=== PATIENT | male | born 1940 | race African-American/Black ===

== ENCOUNTER 2018-06-27 12:36 | Day surgery (SDC) | payer MEDICARE ==
[~2018-06-27] VITALS: Ht 175.3 cm; Wt 68.0 kg
[~2018-06-27 12:36] MED LIST: ATEN50TA PO; DIPH25CA83 PO; GLYB5TAB7 PO; METF-414 PO; P50 PO; PREG75CA PO; ROSU5TAB PO
[2018-06-27] MEDS ORDERED: ASPI-1159 PO (13:37)
[2018-06-27] MEDS ORDERED: FURO-152 PO (13:37)
[2018-06-27] MEDS ORDERED: POTA20TA12 PO (13:37)
[2018-06-27] MEDS ORDERED: GABA-531 PO (13:37)
[2018-06-27] MEDS ORDERED: COR25 PO (13:37)
[2018-06-27] MEDS ORDERED: SITA100T11 PO (13:37)
[2018-06-27] MEDS ORDERED: SACU1TAB7 PO (13:37)
[2018-06-27] MEDS ORDERED: IODIXANOL 320MG/ML 100 ML BOTTLE IV ONE (13:55)
[2018-06-27] MEDS ORDERED: LIDOCAINE HCL 1% 20ML VIAL (Pyxis) INJ ONE (13:55)
[2018-06-27] MEDS ORDERED: DIPHENHYDRAMINE 50MG/ML VIAL ONE (14:13)
[2018-06-27] MEDS ORDERED: HYDROCORTISONE SOD SUCCINATE 250 MG/2 ML VIAL ONE (14:13)
[2018-06-27] MEDS ORDERED: FAMOTIDINE 20MG/2ML VIAL IV ONE (14:14)
[2018-06-27] MEDS ORDERED: FENTANYL CITRATE/PF 50MCG/ML 2ML VIAL ONE (14:29)
[2018-06-27] MEDS ORDERED: MIDAZOLAM HCL 2 MG/2 ML VIAL ONE (14:29)
[2018-06-27] MEDS ORDERED: HEPARIN SODIUM 1,000 UNIT/1ML VIAL IV ONE (14:54)
[2018-06-27] MEDS ORDERED: NITROGLYCERIN 50MCG/ML 10ML VIAL (CATH LAB) IV ONE (15:02)
[2018-06-27] MEDS ORDERED: NICARDIPINE 100MCG/ML 10ML VIAL (CATH LAB) IV ONE (15:02)
== END 2018-06-27 17:00 | disposition home or self-care (01) ==
LOC: CCL 12:36
PROVIDERS: ATTEND Specialist
DX: I25.10 Atherosclerotic heart disease of native coronary artery without angina pectoris (principal); E78.5 Hyperlipidemia, unspecified; I13.0 Hypertensive heart and chronic kidney disease with heart failure and stage 1 through stage 4 chronic kidney disease, or unspecified chronic kidney disease; E11.22 Type 2 diabetes mellitus with diabetic chronic kidney disease; N18.3 Chronic kidney disease, stage 3 (moderate); I50.9 Heart failure, unspecified; I25.2 Old myocardial infarction; Z87.891 Personal history of nicotine dependence; N40.0 Benign prostatic hyperplasia without lower urinary tract symptoms; Z98.890 Other specified postprocedural states; Z95.5 Presence of coronary angioplasty implant and graft; Z88.8 Allergy status to other drugs, medicaments and biological substances
CPT/HCPCS: 82962; 93458; 99152; C1769; J1200; J1644; J2250; J3010; J3490; Q9967; C1887; C1893; J1720; G0500

== ENCOUNTER 2019-02-15 15:12 | Emergency (ER) | payer MEDICARE ==
[~2019-02-15] VITALS: Ht 172.7 cm; Wt 70.0 kg
[~2019-02-15 15:12] MED LIST changes: +ASPI-1393 PO; +COR25 PO; +FURO-152 PO; +GABA-531 PO; +POTA20TA12 PO; +SACU1TAB7 PO; +SITA100T11 PO
[2019-02-15] MEDS ORDERED: SODIUM CHLORIDE 0.9% 1,000 ML IV ONE (22:19)
[2019-02-15 23:07] LABS: EOSINOPHILS % 3.7 % (0.0-5.0); HEMATOCRIT. 43.1 % (42.0-52.0); HEMOGLOBIN. 14.3 g/dL (14.0-18.0); LYMPHOCYTES % 30.4 % (20.0-50.0); MEAN CORPUSCULAR HEMOGLOBIN 25.9 pg (28.0-32.0); MEAN CORPUSCULAR VOLUME 77.7 fL (80.0-94.0); MEAN PLATELET VOLUME 9.7 fl (7.4-10.4); MONOCYTES % 5.8 % (2.0-8.0); NEUTROPHILS % 59.1 % (40.0-76.0); PLATELET 208 x1000/uL (130-400); RED BLOOD CELL COUNT 5.54 mill/uL (4.7-6.1); RED CELL DISTRIBUTION WIDTH 16.8 % (11.6-14.6)
[2019-02-15 23:09] LABS: CLARITY URINE CLEAR (CLEAR); COLOR URINE YELLOW (YELLOW); KETONES URINE NEGATIVE (NEGATIVE); LEUKOCYTE ESTERASE URINE NEGATIVE (NEGATIVE); NITRITE URINE NEGATIVE (NEGATIVE); OCCULT BLOOD URINE NEGATIVE (NEGATIVE); PROTEIN URINE NEGATIVE (NEGATIVE); SPECIFIC GRAVITY URINE 1.013 (1.005-1.030); UROBILINOGEN URINE 0.2 E.U./dL (0.2-1.0)
[2019-02-16 00:11] LABS: CHLORIDE 109 mEq/L (98-107)
[2019-02-16 03:56] VITALS: BP 165/80
== END 2019-02-16 04:02 | disposition home or self-care (01) ==
LOC: ER 15:12
DX: R42 Dizziness and giddiness (principal); R11.2 Nausea with vomiting, unspecified; E11.9 Type 2 diabetes mellitus without complications; E78.00 Pure hypercholesterolemia, unspecified; I10 Essential (primary) hypertension; Z79.82 Long term (current) use of aspirin; Z79.899 Other long term (current) drug therapy; Z91.041 Radiographic dye allergy status; Z88.8 Allergy status to other drugs, medicaments and biological substances
CPT/HCPCS: 36415; 70450; 71045; 80053; 81003; 83880; 84484; 85025; 93005; 96360; 96361; 99284; C1893; J7030

== ENCOUNTER 2020-03-13 14:49 | Inpatient (IN) | payer MEDICARE, OTHER, MEDICAID ==
[~2020-03-13] VITALS: Ht 170.2 cm; Wt 69.5 kg
[~2020-03-13 14:49] MED LIST changes: -ASPI-1393 PO; +ASPI-1497 PO
[2020-03-13 17:26] LABS: CHLORIDE 106 mEq/L (98-107)
[2020-03-13 17:30] LABS: PARTIAL THROMBOPLASTIN TIME 24.2 sec (23.4-31.0); PROTHROMBIN TIME 10.5 sec (9.6-11.0)
[2020-03-13 17:31] LABS: BASOPHILS % 1.3 % (0.0-2.0); EOSINOPHILS % 4.1 % (0.0-5.0); HEMATOCRIT. 29.7 % (42.0-52.0); HEMOGLOBIN. 9.4 g/dL (14.0-18.0); LYMPHOCYTES % 27.7 % (20.0-50.0); MEAN CORPUSCULAR HEMOGLOBIN 22.5 pg (28.0-32.0); MEAN CORPUSCULAR VOLUME 70.8 fL (80.0-94.0); MEAN PLATELET VOLUME 9.6 fl (7.4-10.4); MONOCYTES % 7.1 % (2.0-8.0); NEUTROPHILS % 59.8 % (40.0-76.0); PLATELET 143 x1000/uL (130-400); RED BLOOD CELL COUNT 4.19 mill/uL (4.7-6.1)
[2020-03-13] MEDS ORDERED: DOCUSATE SODIUM 100MG CAPSULE PO PRN (19:30)
[2020-03-13] MEDS ORDERED: ASPIRIN 81MG TABLET PO ONE (19:45)
[2020-03-13 22:30] VITALS: BP 126/78
[2020-03-14] VITALS: BP 180/95
[2020-03-14] MEDS ORDERED: SODIUM POLYSTYRENE SULFONATE 15 G/60 ML BOT PO NR (01:00)
[2020-03-14] MEDS ORDERED: DEXTROSE 50% WATER 50ML SYRINGE IV PRN (01:15)
[2020-03-14] MEDS: SODIUM CHLORIDE 0.9% INJ 3ML FLUSH IVF SCH ×4 (02:28→20:54)
[2020-03-14 04:00] VITALS: BP_SYST 180; BP_SYST 183; BP_DIAS 81; BP_DIAS 95
[2020-03-14] MEDS: ONDANSETRON HCL 4MG/2ML INJ IV PRN (04:19)
[2020-03-14] MEDS ORDERED: CLONIDINE 0.1MG TABLET PO PRN ×2 (06:00→06:15)
[2020-03-14] MEDS: AMLODIPINE 10MG TABLET PO SCH (06:03)
[2020-03-14 06:50] LABS: HEMATOCRIT 27.2 % (42.0-52.0); HEMOGLOBIN 8.8 g/dL (14.0-18.0); MEAN CORPUSCULAR HEMOGLOBIN 22.4 pg (28.0-32.0); MEAN CORPUSCULAR VOLUME 69.3 fL (80.0-94.0); PLATELET 245 x1000/uL (130-400); RED BLOOD CELL COUNT 3.92 mill/uL (4.7-6.1); RED CELL DISTRIBUTION WIDTH 18.6 % (11.6-14.6)
[2020-03-14] MEDS: INSULIN LISPRO 100 UNITS/ML SUBCUT SCH ×4 (07:47→20:54)
[2020-03-14] MEDS: BLOOD SUGAR DIAGNOSTIC STRIP TEST SCH ×4 (07:47→20:50)
[2020-03-14 08:00] VITALS: BP 156/82
[2020-03-14] MEDS ORDERED: POTASSIUM CHLORIDE 20MEQ TABLET SR PO SCH (10:15)
[2020-03-14 12:00] VITALS: BP_SYST 115; BP_SYST 128; BP_SYST 151; BP_DIAS 69; BP_DIAS 74; BP_DIAS 78
[2020-03-14] MEDS: CLOPIDOGREL 75MG TABLET PO SCH (12:11)
[2020-03-14] MEDS: SODIUM CHLORIDE 0.45% 1,000 ML IV SCH (14:27)
[2020-03-14 16:00] VITALS: BP 148/70
[2020-03-14] MEDS: CLONIDINE 0.2MG TABLET PO SCH ×2 (16:58→22:00)
[2020-03-14] MEDS: MECLIZINE 25MG TABLET PO SCH (16:58)
[2020-03-14] MEDS: ENOXAPARIN 40MG/0.4ML SYR SUBCUT SCH (16:59)
[2020-03-14 17:52] LABS: CLARITY URINE CLEAR (CLEAR); COLOR URINE YELLOW (YELLOW); KETONES URINE NEGATIVE (NEGATIVE); LEUKOCYTE ESTERASE URINE NEGATIVE (NEGATIVE); NITRITE URINE NEGATIVE (NEGATIVE); OCCULT BLOOD URINE NEGATIVE (NEGATIVE); PROTEIN URINE TRACE (NEGATIVE); SPECIFIC GRAVITY URINE 1.013 (1.005-1.030)
[2020-03-14 18:07] LABS: *AMPHETAMINES SCREEN URINE NEGATIVE (NEGATIVE); *BARBITURATES SCREEN URINE NEGATIVE (NEGATIVE); *BENZODIAZEPINES SCREEN URINE NEGATIVE (NEGATIVE); *COCAINE SCREEN URINE NEGATIVE (NEGATIVE); METHADONE URINE SCREEN NEGATIVE (NEGATIVE); OPIATES URINE SCREEN NEGATIVE (NEGATIVE)
[2020-03-14 18:08] LABS: CANNABINOID URINE SCREEN NEGATIVE (NEGATIVE); PHENCYCLIDINE URINE SCREEN NEGATIVE (NEGATIVE)
[2020-03-14 20:00] VITALS: BP 111/63
[2020-03-14] MEDS: ATORVASTATIN CALCIUM 40MG TABLET PO SCH (20:47)
[2020-03-15] VITALS (9 sets, daily range): BP systolic 91–144; BP diastolic 47–77
[2020-03-15] MEDS: SODIUM CHLORIDE 0.45% 1,000 ML IV SCH ×2 (02:13→20:04)
[2020-03-15] MEDS: CLONIDINE 0.2MG TABLET PO SCH ×3 (06:42→21:14)
[2020-03-15] MEDS: SODIUM CHLORIDE 0.9% INJ 3ML FLUSH IVF SCH ×3 (06:43→21:14)
[2020-03-15] MEDS: BLOOD SUGAR DIAGNOSTIC STRIP TEST SCH ×4 (06:43→21:10)
[2020-03-15] MEDS: INSULIN LISPRO 100 UNITS/ML SUBCUT SCH ×4 (07:50→21:14)
[2020-03-15] MEDS: ACETAMINOPHEN 325MG TABLET PO PRN (10:48)
[2020-03-15] MEDS: MECLIZINE 25MG TABLET PO SCH ×2 (10:48→17:32)
[2020-03-15] MEDS: AMLODIPINE 10MG TABLET PO SCH (10:48)
[2020-03-15] MEDS: CLOPIDOGREL 75MG TABLET PO SCH (10:48)
[2020-03-15] MEDS: ENOXAPARIN 40MG/0.4ML SYR SUBCUT SCH (14:10)
[2020-03-15] MEDS: ATORVASTATIN CALCIUM 40MG TABLET PO SCH (21:05)
[2020-03-15] MEDS: ONDANSETRON HCL 4MG/2ML INJ IV PRN (21:12)
[2020-03-16] VITALS: BP 104/62
[2020-03-16 04:00] VITALS: BP 113/55
[2020-03-16] MEDS: CLONIDINE 0.2MG TABLET PO SCH (06:00)
[2020-03-16] MEDS: SODIUM CHLORIDE 0.9% INJ 3ML FLUSH IVF SCH ×2 (06:17→14:00)
[2020-03-16] MEDS: BLOOD SUGAR DIAGNOSTIC STRIP TEST SCH ×2 (06:23→12:26)
[2020-03-16 07:07] LABS: BASOPHILS % 1.9 % (0.0-2.0); EOSINOPHILS % 6.3 % (0.0-5.0); HEMATOCRIT. 26.3 % (42.0-52.0); HEMOGLOBIN. 8.3 g/dL (14.0-18.0); LYMPHOCYTES % 35.2 % (20.0-50.0); MEAN CORPUSCULAR HEMOGLOBIN 22.3 pg (28.0-32.0); MEAN CORPUSCULAR VOLUME 70.3 fL (80.0-94.0); MEAN PLATELET VOLUME 9.5 fl (7.4-10.4); MONOCYTES % 6.9 % (2.0-8.0); NEUTROPHILS % 49.7 % (40.0-76.0); PLATELET 225 x1000/uL (130-400); RED BLOOD CELL COUNT 3.74 mill/uL (4.7-6.1); RED CELL DISTRIBUTION WIDTH 19.2 % (11.6-14.6)
[2020-03-16] MEDS: INSULIN LISPRO 100 UNITS/ML SUBCUT SCH ×2 (07:22→12:27)
[2020-03-16 08:08] VITALS: BP_SYST 136; BP_SYST 138; BP_SYST 142; BP_DIAS 56; BP_DIAS 66
[2020-03-16] MEDS: CLOPIDOGREL 75MG TABLET PO SCH (08:33)
[2020-03-16] MEDS: AMLODIPINE 10MG TABLET PO SCH (08:34)
[2020-03-16] MEDS: MECLIZINE 25MG TABLET PO SCH (08:35)
[2020-03-16] MEDS: ACETAMINOPHEN 325MG TABLET PO PRN (08:35)
[2020-03-16 10:39] LABS: CHLORIDE 112 mEq/L (98-107)
[2020-03-16 12:06] VITALS: BP 132/50
[2020-03-16] MEDS: SODIUM CHLORIDE 0.45% 1,000 ML IV SCH (12:15)
[2020-03-16 12:25] VITALS: BP 132/50
[2020-03-17 19:06] LABS: ANTI-NUCLEAR ANTIBODIES DIRECT Positive (Negative)
== END 2020-03-16 14:20 | disposition home or self-care (01) | DRG 74 ==
LOC: ER 14:49 → 6WST 18:44 → EDBEDREQ 18:51 → EDBEDREQTM 18:51 → SUPCPDRO 21:49 → ENRESERV 21:54
PROVIDERS: ADMIT Internal Medicine Nephrology; ATTEND Internal Medicine Nephrology
PROC: 4A00X4Z Measurement of Central Nervous Electrical Activity, External Approach (ICD-10-PCS; principal; 2020-03-16)
DX: G90.8 Other disorders of autonomic nervous system (principal); N17.9 Acute kidney failure, unspecified; I31.3 Pericardial effusion (noninflammatory); I13.0 Hypertensive heart and chronic kidney disease with heart failure and stage 1 through stage 4 chronic kidney disease, or unspecified chronic kidney disease; E78.5 Hyperlipidemia, unspecified; E11.51 Type 2 diabetes mellitus with diabetic peripheral angiopathy without gangrene; I25.82 Chronic total occlusion of coronary artery; E87.6 Hypokalemia; D64.9 Anemia, unspecified; I25.10 Atherosclerotic heart disease of native coronary artery without angina pectoris; I25.5 Ischemic cardiomyopathy; I50.9 Heart failure, unspecified; Z88.8 Allergy status to other drugs, medicaments and biological substances; Z91.041 Radiographic dye allergy status; Z79.82 Long term (current) use of aspirin; Z79.899 Other long term (current) drug therapy; I69.30 Unspecified sequelae of cerebral infarction
CPT/HCPCS: 36415; 70544; 70553; 71045; 76770; 80048; 80053; 80305; 81003; 82140; 82550; 82962; 83036; 83880; 84443; 84484; 85025; 85027; 86038; 86160; 93005; 93306; 95816; 99285; J1650; J1815; J2405; J8597

== ENCOUNTER → 2021-12-22 | Day surgery (SDC) | payer MEDICARE ==
[~2021-12-22] VITALS: Ht 175.3 cm; Wt 64.9 kg
[~2021-12-22] MED LIST changes: +ACETAMINOPHEN 325MG TABLET PO PRN; +ATROPINE SULFATE 1MG/10ML SYR IV PRN; +DIPHENHYDRAMINE 50MG/ML VIAL ONE; +FAMOTIDINE 20MG/2ML VIAL IV ONE; +FENTANYL CITRATE/PF 50MCG/ML 2ML VIAL ONE; -GABA-531 PO; +GABA-532 PO; +HEPARIN SODIUM 1,000 UNIT/1ML VIAL IV ONE; +IODIXANOL 320MG/ML 100 ML BOTTLE IV ONE; +LIDOCAINE HCL 1% 10 MG/ML 10ML VIAL ONE; +LIP40 MT; +METHYLPREDNISOLONE SOD SUCC 125 MG/2 ML VIAL ONE; +MIDAZOLAM HCL 2 MG/2 ML VIAL ONE; +NICARDIPINE 100MCG/ML 10ML VIAL (CATH LAB) IV ONE; +NITROGLYCERIN 50MCG/ML 10ML VIAL (CATH LAB) IV ONE; +ONDANSETRON HCL 4MG/2ML INJ IV PRN
== END | disposition home or self-care (01) ==
LOC: CCL 09:21
PROVIDERS: ATTEND Specialist
DX: I25.119 Atherosclerotic heart disease of native coronary artery with unspecified angina pectoris (principal); I11.0 Hypertensive heart disease with heart failure; I50.42 Chronic combined systolic (congestive) and diastolic (congestive) heart failure; E11.9 Type 2 diabetes mellitus without complications; E78.5 Hyperlipidemia, unspecified; I25.2 Old myocardial infarction; I25.5 Ischemic cardiomyopathy; I77.9 Disorder of arteries and arterioles, unspecified; N40.0 Benign prostatic hyperplasia without lower urinary tract symptoms; Z79.82 Long term (current) use of aspirin; Z79.84 Long term (current) use of oral hypoglycemic drugs; Z79.899 Other long term (current) drug therapy; Z86.73 Personal history of transient ischemic attack (TIA), and cerebral infarction without residual deficits; Z87.891 Personal history of nicotine dependence; Z98.890 Other specified postprocedural states; Z82.49 Family history of ischemic heart disease and other diseases of the circulatory system; Z95.5 Presence of coronary angioplasty implant and graft; Z88.8 Allergy status to other drugs, medicaments and biological substances; Z83.3 Family history of diabetes mellitus; Z20.822 Contact with and (suspected) exposure to COVID-19
CPT/HCPCS: 87426; 93454; C1769; C1887; C1893; C9803; J1200; J1644; J2250; J2930; J3010; J3490; Q9967

== ENCOUNTER 2022-09-09 06:29 | Inpatient (IN) | payer MEDICARE, OTHER ==
[~2022-09-09] VITALS: Ht 172.7 cm; Wt 45.8 kg
[~2022-09-09 06:29] MED LIST changes: -ACETAMINOPHEN 325MG TABLET PO PRN; -ATROPINE SULFATE 1MG/10ML SYR IV PRN; -DIPHENHYDRAMINE 50MG/ML VIAL ONE; -FAMOTIDINE 20MG/2ML VIAL IV ONE; -FENTANYL CITRATE/PF 50MCG/ML 2ML VIAL ONE; -HEPARIN SODIUM 1,000 UNIT/1ML VIAL IV ONE; -IODIXANOL 320MG/ML 100 ML BOTTLE IV ONE; -LIDOCAINE HCL 1% 10 MG/ML 10ML VIAL ONE; -METHYLPREDNISOLONE SOD SUCC 125 MG/2 ML VIAL ONE; -MIDAZOLAM HCL 2 MG/2 ML VIAL ONE; -NICARDIPINE 100MCG/ML 10ML VIAL (CATH LAB) IV ONE; -NITROGLYCERIN 50MCG/ML 10ML VIAL (CATH LAB) IV ONE; -ONDANSETRON HCL 4MG/2ML INJ IV PRN; +POTA-194 PO; -POTA20TA12 PO
[2022-09-09] MEDS ORDERED: ONDANSETRON HCL 4MG/2ML INJ IV STA (07:14)
[2022-09-09] MEDS ORDERED: OXYCODONE HCL/ACETAMINOPHEN 5/325MG TABLET PO ONE (07:15)
[2022-09-09 08:33] LABS: CHLORIDE 109 mEq/L (98-107); PROTHROMBIN TIME 10.6 sec (9.6-11.0)
[2022-09-09 08:49] LABS: BASOPHILS % 1.5 % (0.0-2.0); EOSINOPHILS % 5.8 % (0.0-5.0); HEMATOCRIT. 32.8 % (42.0-52.0); HEMOGLOBIN. 10.4 g/dL (14.0-18.0); LYMPHOCYTES % 20.7 % (20.0-50.0); MEAN CORPUSCULAR HEMOGLOBIN 22.9 pg (28.0-32.0); MEAN CORPUSCULAR VOLUME 72.5 fL (80.0-94.0); MEAN PLATELET VOLUME 9.1 fl (7.4-10.4); MONOCYTES % 8.4 % (2.0-8.0); NEUTROPHILS % 63.6 % (40.0-76.0); PLATELET 241 x1000/uL (130-400); RED BLOOD CELL COUNT 4.53 mill/uL (4.7-6.1); RED CELL DISTRIBUTION WIDTH 19.6 % (11.6-14.6)
[2022-09-09] MEDS ORDERED: SODIUM CHLORIDE 0.9% 1,000 ML IV ONE (09:45)
[2022-09-09] MEDS ORDERED: ONDANSETRON HCL 4MG/2ML INJ IV PRN (13:00)
[2022-09-09] MEDS: SODIUM CHLORIDE 0.45% 1,000 ML IV SCH (14:40)
[2022-09-09 16:00] VITALS: BP_SYST 124; BP_SYST 130; BP_DIAS 58; BP_DIAS 60
[2022-09-09] MEDS: ACETAMINOPHEN 325MG TABLET PO PRN (18:28)
[2022-09-09] MEDS: PANTOPRAZOLE SODIUM 40 MG/VIAL IV SCH (18:28)
[2022-09-09 20:00] VITALS: BP 141/62
[2022-09-09 21:06] LABS: HEMATOCRIT 34.2 % (42.0-52.0); HEMOGLOBIN 10.5 g/dL (14.0-18.0)
[2022-09-09 21:36] LABS: TOTAL IRON BINDING CAPACITY 335 ug/dL (250-450)
[2022-09-09 22:03] LABS: FOLIC ACID (FOLATE) SERUM 11.9 ng/mL (>5.38)
[2022-09-10] VITALS: BP 113/54
[2022-09-10 01:18] LABS: HEMATOCRIT 31.9 % (42.0-52.0); HEMOGLOBIN 10.1 g/dL (14.0-18.0)
[2022-09-10 04:00] VITALS: BP 117/58
[2022-09-10 05:43] LABS: BASOPHILS % 1.7 % (0.0-2.0); EOSINOPHILS % 6.5 % (0.0-5.0); HEMATOCRIT. 31.7 % (42.0-52.0); HEMOGLOBIN. 10.3 g/dL (14.0-18.0); LYMPHOCYTES % 34.4 % (20.0-50.0); MEAN CORPUSCULAR HEMOGLOBIN 23.1 pg (28.0-32.0); MONOCYTES % 8.9 % (2.0-8.0); NEUTROPHILS % 48.5 % (40.0-76.0); PLATELET 238 x1000/uL (130-400); RED BLOOD CELL COUNT 4.47 mill/uL (4.7-6.1); RED CELL DISTRIBUTION WIDTH 19.6 % (11.6-14.6)
[2022-09-10 08:00] VITALS: BP 136/67
[2022-09-10] MEDS: SODIUM CHLORIDE 0.45% 1,000 ML IV SCH (08:39)
[2022-09-10] MEDS: PANTOPRAZOLE SODIUM 40 MG/VIAL IV SCH (08:39)
[2022-09-10 12:00] VITALS: BP 117/69
[2022-09-10] MEDS: ACETAMINOPHEN 325MG TABLET PO PRN (12:50)
[2022-09-10 13:59] LABS: HEMATOCRIT 33.2 % (42.0-52.0); HEMOGLOBIN 10.4 g/dL (14.0-18.0)
[2022-09-10 15:11] VITALS: BP 106/54
== END 2022-09-10 16:00 | disposition home or self-care (01) | DRG 378 ==
LOC: ER 06:29 → MICUSO 10:28 → 8WST 15:40
PROVIDERS: ADMIT Internal Medicine; ATTEND Internal Medicine
DX: K92.2 Gastrointestinal hemorrhage, unspecified (principal); N17.9 Acute kidney failure, unspecified; E11.9 Type 2 diabetes mellitus without complications; E78.00 Pure hypercholesterolemia, unspecified; I11.0 Hypertensive heart disease with heart failure; I25.10 Atherosclerotic heart disease of native coronary artery without angina pectoris; I50.9 Heart failure, unspecified; Z20.822 Contact with and (suspected) exposure to COVID-19; D64.9 Anemia, unspecified; I70.0 Atherosclerosis of aorta; M47.816 Spondylosis without myelopathy or radiculopathy, lumbar region; Z95.5 Presence of coronary angioplasty implant and graft; Z79.82 Long term (current) use of aspirin
CPT/HCPCS: 36415; 74176; 80048; 80053; 82270; 82607; 82728; 82746; 82962; 83540; 83550; 83605; 84484; 85014; 85018; 85025; 85044; 86850; 86900; 87426; 93005; 93970; 99285; C9113; J2405; J7030

== ENCOUNTER 2022-10-05 12:13 | Emergency (ER) | payer OTHER, MEDICARE ==
[~2022-10-05] VITALS: Ht 165.1 cm; Wt 66.0 kg
[2022-10-05] MEDS ORDERED: IBUPROFEN 400MG TABLET PO ONE (15:45)
[2022-10-05 17:16] LABS: BASOPHILS % 1.1 % (0.0-2.0); EOSINOPHILS % 3.2 % (0.0-5.0); HEMOGLOBIN. 12.5 g/dL (14.0-18.0); LYMPHOCYTES % 27.1 % (20.0-50.0); MEAN CORPUSCULAR VOLUME 76.8 fL (80.0-94.0); MEAN PLATELET VOLUME 9.5 fl (7.4-10.4); MONOCYTES % 5.7 % (2.0-8.0); NEUTROPHILS % 62.9 % (40.0-76.0); PLATELET 211 x1000/uL (130-400); RED BLOOD CELL COUNT 5.22 mill/uL (4.7-6.1); RED CELL DISTRIBUTION WIDTH 21.8 % (11.6-14.6)
[2022-10-05 17:30] LABS: CHLORIDE 111 mEq/L (98-107)
[2022-10-05] MEDS ORDERED: NAPR375T5 MT (18:21)
[2022-10-05] MEDS ORDERED: IBUPROFEN 400MG TABLET PO NR (19:00)
[2022-10-05 19:01] VITALS: BP 167/76
== END 2022-10-05 19:04 | disposition home or self-care (01) ==
LOC: ER 14:37
DX: M79.662 Pain in left lower leg (principal); M79.661 Pain in right lower leg; E11.9 Type 2 diabetes mellitus without complications; I11.0 Hypertensive heart disease with heart failure; I50.9 Heart failure, unspecified; Z79.84 Long term (current) use of oral hypoglycemic drugs; Z91.041 Radiographic dye allergy status
CPT/HCPCS: 36415; 80053; 83735; 85025; 93970; 99284